=== PATIENT | male | born 1960 | race African-American/Black ===

== ENCOUNTER 2017-06-19 08:21 | Outpatient (CLI) | payer BC ==
[2017-06-19 08:47] VITALS: BMI 34.7
[2017-06-19 10:16] LABS: Hemoglobin 14.1 g/dL (14.0-18.0); Mean Corpuscular HGB CONC 32.8 g/dL (32.0-36.0); Mean Corpuscular Hemoglobin 31.2 pg (27.0-31.0); Mean Corpuscular Volume 95.2 fl (80.0-94.0); Mean Platelet Volume 9.2 fL (7.4-10.4); Platelet Count 136 thou/uL (130-400); RBC Distribution Width 12.9 % (11.5-14.5); Red Blood Cell (RBC) Count 4.52 mill/uL (4.70-6.10); White Blood Cell (WBC) Count 6.2 thou/uL (4.8-10.8)
[2017-06-19 10:23] LABS: INR-International Normal Ratio 1.1; PTT 28.3 SEC (22.9-36.1); Prothrombin Time 14.5 SEC (12.0-14.7)
[2017-06-19 10:44] LABS: ALT (SGPT) 30 U/L (8-55); AST (SGOT) 31 U/L (5-34); Albumin 3.8 g/dL (3.5-5.0); Alkaline Phosphatase 65 U/L (40-150); Anion Gap 11 mmol/L (10-20); BUN (Urea Nitrogen) 20 mg/dL (8.4-25.7); Bilirubin, Total 0.7 mg/dL (0.2-1.2); Calc. Creatinine Clearance 87 mL/min (70-130); Calcium 8.7 mg/dL (7.8-10.44); Carbon Dioxide 24 mmol/L (22-29); Cardiac Risk 2.5 (Less than 4.5); Chloride 108 mmol/L (98-107); Cholesterol 150 mg/dl (< 200 Desired); Estimated GFR-MDRD 53; Globulin 2.8 g/dL (2.4-3.5); Glucose 82 mg/dL (70-105); HDL Cholesterol 61 mg/dL (>60 Neg Risk); LDL Cholesterol, Calculated 80 mg/dL; Potassium 4.9 mmol/L (3.5-5.1); Protein, Total 6.6 g/dL (6.0-8.3); Sodium 138 mmol/L (136-145); Triglycerides 46 mg/dL (Less than 150)
--- NOTE | 2017-06-20 07:21 | EKG ---
Test Reason : Blood Pressure : / mmHG Vent. Rate : 061 BPM Atrial Rate : 061 BPM P-R Int : 146 ms QRS Dur : 080 ms QT Int : 440 ms P-R-T Axes : 049 -35 117 degrees QTc Int : 442 ms Electronic atrial pacemaker Left axis deviation Anterior infarct , age undetermined T wave abnormality, consider lateral ischemia Abnormal ECG When compared with ECG of 21-JAN-2015 20:33, Electronic atrial pacemaker has replaced Sinus rhythm Anterior infarct is now Present T wave inversion now evident in Lateral leads Confirmed by DR. Manolo SUAZO ([id number]) on 06/20/2017 7:21:19 AM Referred By: IVA Confirmed By:DR. Manolo SUAZO
== END 2017-06-19 08:22 | disposition home or self-care (01) ==
LOC: LABBT 08:21
PROVIDERS: ATTEND Internal Medicine Cardiovascular Disease
DX: Z01.818 Encounter for other preprocedural examination (principal); I25.5 Ischemic cardiomyopathy
CPT/HCPCS: 80053; 80061; 85027; 85610; 85730; 93005; 93010

== ENCOUNTER 2017-06-20 06:40 | Day surgery (SDC) | payer BC ==
[2017-06-20 07:30] LABS: Anion Gap 10 mmol/L (10-20); BUN (Urea Nitrogen) 20 mg/dL (8.4-25.7); Calc. Creatinine Clearance 0 mL/min (70-130); Calcium 8.4 mg/dL (7.8-10.44); Carbon Dioxide 23 mmol/L (22-29); Chloride 108 mmol/L (98-107); Estimated GFR-MDRD 52; Glucose 93 mg/dL (70-105); Potassium 4.2 mmol/L (3.5-5.1); Sodium 137 mmol/L (136-145)
[2017-06-20] MEDS ORDERED: Heparin 0 ML ONE (08:57)
[2017-06-20] MEDS ORDERED: Lidocaine 1% (PF) 30 ML VIAL ONE (08:58)
[2017-06-20] MEDS ORDERED: Nitroglycerin 100MG/250ML BOT 250 ML ONE (09:27)
[2017-06-20] MEDS ORDERED: Verapamil 5 MG/2 ML VIAL ONE (09:27)
[2017-06-20] MEDS ORDERED: Heparin 10,000 UNITS/1 ML VIAL ONE (09:42)
[2017-06-20] MEDS ORDERED: Fentanyl 100 MCG/2 ML VIAL ONE (09:42)
[2017-06-20] MEDS ORDERED: Midazolam HCl 2 mg/2 ml Vial ONE (09:43)
[2017-06-20] MEDS ORDERED: Nitroglycerin 0.4 MG TAB (25 Tab Bottle) SL PRN (10:37)
[2017-06-20] MEDS ORDERED: Sodium Chloride 0.9% 1,000 ML IV SCH (10:37)
[2017-06-20] MEDS ORDERED: Acetaminophen/Codeine 30-300mg Tablet PO PRN ×2 (10:37)
[2017-06-20] MEDS ORDERED: TICAGRELOR 90 MG TABLET PO SCH (10:45)
[2017-06-20] MEDS ORDERED: Iopamidol 370 76% 100 ML VIAL ONE (11:25)
== END 2017-06-20 14:46 | disposition home or self-care (01) ==
LOC: CCL 06:40
PROVIDERS: ATTEND Internal Medicine Cardiovascular Disease
PROC: 4A023N7 Measurement of Cardiac Sampling and Pressure, Left Heart, Percutaneous Approach (ICD-10-PCS; principal; 2017-06-20)
DX: I25.5 Ischemic cardiomyopathy (principal); I25.2 Old myocardial infarction; I10 Essential (primary) hypertension; E78.5 Hyperlipidemia, unspecified; K21.9 Gastro-esophageal reflux disease without esophagitis; Z88.0 Allergy status to penicillin
CPT/HCPCS: 80048; 93454; 93798; 99152; C1769; J1644; J2001; J2250; J3010

== ENCOUNTER 2017-10-11 12:15 | Inpatient (IN) | payer BC ==
[~2017-10-11 12:15] MED LIST: Iopamidol 370 76% 100 ML VIAL ONE; Iopamidol 370 76% 50 ML VIAL FS ONE
[2017-10-11 12:47] LABS: #Eosinphils 0.1 thou/uL (0.0-0.7); #Lymphocytes 3.4 thou/uL (1.20-3.40); #Monocytes 0.8 thou/uL (0.11-0.59); #Neutrophils 4.2 thou/uL (1.40-6.50); %Basophils 0.5 % (0.0-1.0); %Eosinophils 1.3 % (0.0-10.0); %Lymphocytes 39.6 % (21.0-51.0); %Monocytes 8.9 % (0.0-10.0); %Neutrophils 49.7 % (42.0-75.0); Hemoglobin 14.3 g/dL (14.0-18.0); Mean Corpuscular HGB CONC 33.7 g/dL (32.0-36.0); Mean Corpuscular Volume 92.1 fL (78.0-98.0); Mean Platelet Volume 8.9 fL (7.4-10.4); Platelet Count 143 thou/uL (130-400); RBC Distribution Width 12.6 % (11.5-14.5); Red Blood Cell (RBC) Count 4.62 mill/uL (4.70-6.10); White Blood Cell (WBC) Count 8.5 thou/uL (4.8-10.8)
[2017-10-11] MEDS ORDERED: Heparin 10,000 UNITS/1 ML VIAL ONE ×2 (12:53→13:30)
[2017-10-11 12:54] LABS: INR-International Normal Ratio 1.2
[2017-10-11] MEDS ORDERED: Aggrastat 12.5 MG/250 ML 250 ML ONE (12:54)
[2017-10-11 12:55] LABS: ALT (SGPT) 36 U/L (8-55); AST (SGOT) 33 U/L (5-34); Alkaline Phosphatase 75 U/L (40-150); Anion Gap 22 mmol/L (10-20); BUN (Urea Nitrogen) 23 mg/dL (8.4-25.7); Bilirubin, Total 0.6 mg/dL (0.2-1.2); CK (CPK) 275 U/L (30-200); Calc. Creatinine Clearance 0 mL/min (70-130); Calcium 9.1 mg/dL (7.8-10.44); Carbon Dioxide 14 mmol/L (22-29); Chloride 107 mmol/L (98-107); Estimated GFR-MDRD 44; Globulin 3.3 g/dL (2.4-3.5); Glucose 147 mg/dL (70-105); PTT 75.9 SEC (22.9-36.1); Potassium 3.2 mmol/L (3.5-5.1); Protein, Total 7.3 g/dL (6.0-8.3); Sodium 140 mmol/L (136-145)
[2017-10-11 13:05] LABS: CKMB 3.8 ng/mL (0-6.6); Troponin I Less than 0.010 ng/mL (< 0.028)
[2017-10-11] MEDS ORDERED: Heparin 1000 UNIT/NS 500ML(OR) 500 ML ONE (13:12)
[2017-10-11] MEDS ORDERED: Heparin 1000 UNIT/NS 500ML(OR) 1,000 ML ONE (13:13)
[2017-10-11] MEDS ORDERED: Lidocaine 1% (PF) 30 ML VIAL ONE (13:13)
[2017-10-11] MEDS ORDERED: Morphine 4 MG/ML VIAL SLOW IVP PRN (14:32)
[2017-10-11] MEDS ORDERED: Sodium Chloride 0.9% 1,000 ML IV SCH (14:32)
[2017-10-11] MEDS ORDERED: Nitroglycerin 0.4 MG TAB (25 Tab Bottle) SL PRN (14:32)
--- NOTE | 2017-10-11 16:06 | CCL ---
CARDIAC CATHETERIZATION REPORT: PROCEDURE: Coronary arteriography, thrombectomy, proximal left anterior descending (LAD) stent, placement of drug-eluting stent in the proximal left anterior descending (LAD). INDICATION: Anterolateral STEMI. DESCRIPTION OF PROCEDURE: The patient was brought from the emergency room after he arrived via ground ambulance from [place]. He had been given 4000 of heparin in [place] and he was given another 4000 when he arrived in the senior cytogenetics laboratory director. The right groin was prepped and draped and a 6 Eritrean sheath was placed into the right femoral artery and after lidocaine was placed for local anesthesia. A 6-Eritrean left 4 guide catheter was inserted. The proximal LAD was found to be totally occluded. There was a very high right angle takeoff of the LAD requiring some wire manipulation, but eventually the LAD was cannulated. The wire selectively went into the stented diagonal rather than the LAD and the decision was made to leave the wire there. A Pronto catheter was then used and a large amount of thrombotic material was removed with denominational of flow and improvement in his symptoms. The second Floppy Choice wire was then inserted into the apical LAD. Additional views were obtained and it was felt that the proximal LAD was somewhat narrowed and the decision was made to place a stent proximal to the previous one. A Synergy 3.5 x 20 mm stent was then positioned and deployed. The diagonal wire was then removed. Contrast injection showed excellent result and the balloon and wire were removed. The left 4 guide catheter was removed and a 6-Eritrean John right 4 was used for right coronary arteriography. The sheath was sutured in place. During the procedure, ACTs were monitored to obtain an ACT greater than 300. Also, Aggrastat was used. He was given Brilinta 180mg since he had not taken his dose this morning. RESULTS: CORONARY ARTERIOGRAPHY: 1. Left main was normal. 2. The LAD was totally occluded. Once this was opened, the diagonal stent was also patent; however, there was an approximately 2 mm area between the takeoff of the first diagonal and where the stent was located with narrowing in that area. The decision was made not to deal with this at this time. 3. The circumflex had a stent in the first obtuse marginal. There was a 60% lesion in the left posterior descending. 4. The right coronary artery was a somewhat small, but normal. INTERVENTION RESULTS: The proximal LAD was totally occluded at the beginning the procedure and at the end of procedure the stents were patent and there was PRABHJOT 3 flow. IMPRESSION: 1. Two-vessel coronary disease (left anterior descending and circumflex). 2. Successful thrombectomy and drug-eluting stent placement in the proximal left anterior descending. POS: LEVON GREEN
[2017-10-11 16:47] VITALS: BMI 32.2
[2017-10-11] MEDS ORDERED: Potassium Chloride 20 MEQ TAB PO SCH (18:45)
[2017-10-11 19:38] LABS: CKMB 142.4 ng/mL (0-6.6); Troponin I 54.204 ng/mL (< 0.028)
[2017-10-11] MEDS: TICAGRELOR 90 MG TABLET PO SCH (19:52)
[2017-10-11] MEDS: Sacubitril 24.5 MG/Valsartan 25.5 MG TABLET PO SCH (19:52)
[2017-10-11] MEDS: Atorvastatin Calcium 40 MG TAB PO SCH (19:52)
[2017-10-11] MEDS: Famotidine 20 MG TAB PO SCH (19:52)
[2017-10-11] MEDS: Aggrastat 12.5 MG/250 ML 250 ML IVPB SCH (19:56)
--- NOTE | 2017-10-11 20:35 | HP ---
DATE OF ADMISSION: 10/11/2017 HISTORY OF PRESENT ILLNESS: Isaias Gonzalez is a 57-year-old black male who initially presented to [facility] in 07/2009. He had an inferolateral myocardial infarction and underwent emergent catheterization by Dr. Jha, which revealed totally occluded large first obtuse marginal. He underwent placement of Promus 3.5 x 28 mm stent. He then apparently did well until he presented back here in 03/2014. He had negative cardiac enzymes after presenting with chest pain. Then in early 2016, he had an anterior STEMI. He was transferred to [facility] to Dr. Barriga, placed a stent in his LAD as well as diagonal, both drug-eluting stents. He had VT arrest and was placed on amiodarone and was sent home on a LifeVest. He continued to have poor left ventricular function and ultimately had placement of a dual chamber ICD by Dr. Parks. After his ICD was placed, he underwent repeat catheterization by Dr. Triana in June of this year and it was found that all stents were patent. He was doing well until this morning when he was cutting some limbs out in his yard in the heat. Also, he had not taken his Brilinta this morning. He then had acute onset of substernal chest pressure associated with shortness of breath and diaphoresis. He went to the emergency room in [place] and was found to have 3-[address] segment elevation V2 through V4. Another EKG on arrival here at [facility] showed more ST elevation in the lateral leads. He was sent by ground ambulance. I was contacted after he had already been accepted by the emergency room physician. PAST MEDICAL HISTORY: Hypertension, hypercholesterolemia. No history of diabetes. MEDICATIONS: At home include aspirin 81 mg daily, Brilinta 90 b.i.d., amiodarone daily, Repatha 140 mg q.2 weeks, Entresto 24/ b.i.d., atorvastatin 40 daily, metoprolol 50 mg daily. ALLERGIES: AMOXICILLIN. SOCIAL HISTORY: He does not smoke. He occasionally drinks. FAMILY HISTORY: Negative for coronary artery disease. REVIEW OF SYSTEMS: Twelve-point review of systems is otherwise unremarkable. PHYSICAL EXAMINATION: VITAL SIGNS: BP 108/80, pulse of 92. HEENT: PERRL. NECK: Supple. CHEST: Clear. CARDIAC: S1, S2 normal without any S3, S4 or murmurs. ABDOMEN: Normal bowel sounds, without tenderness or organomegaly. EXTREMITIES: Revealed no clubbing, cyanosis or edema. NEUROLOGIC: Grossly intact. SKIN: Warm. His face is diaphoretic. LABORATORY DATA: EKG findings as noted above. Laboratories pending at the time he was seen in the emergency room. IMPRESSION: 1. Anterolateral myocardial infarction, probably due to acute stent thrombosis of the LAD and/or diagonal stents. The patient did not take his Brilinta this morning and was out working in the heat. 2. History of anterior myocardial infarction in early 2016 with placement of LAD and diagonal stents at [facility]. 3. Inferolateral myocardial infarction in 07/2009 with placement of stent in a first obtuse marginal. 4. History of ICD placement. 5. Hypercholesterolemia. 6. Hypertension. 7. Ischemic cardiomyopathy. PLAN: The situation was discussed with the patient and his . It was recommended that he undergo emergent catheterization. Risk of , myocardial infarction, dye reaction, vascular injury, CVA, transfusion, limb loss, renal loss, emergent CABG, restenosis, etc., were discussed and he agrees to proceed. PETER
[2017-10-12 01:15] LABS: CKMB 122.5 ng/mL (0-6.6); Critical Call CKMBM RESULT DECREASING; Critical Call Chem Troponin I RESULT DECREASING; Troponin I 44.487 ng/mL (< 0.028)
[2017-10-12 05:23] LABS: #Monocytes 0.5 thou/uL (0.11-0.59); #Neutrophils 7.4 thou/uL (1.40-6.50); %Eosinophils 0.2 % (0.0-10.0); %Lymphocytes 11.7 % (21.0-51.0); %Monocytes 5.3 % (0.0-10.0); %Neutrophils 82.8 % (42.0-75.0); Hemoglobin 14.4 g/dL (14.0-18.0); Mean Corpuscular HGB CONC 33.8 g/dL (32.0-36.0); Mean Corpuscular Hemoglobin 31.4 pg (27.0-31.0); Mean Corpuscular Volume 92.9 fL (78.0-98.0); Mean Platelet Volume 8.8 fL (7.4-10.4); Platelet Count 138 thou/uL (130-400); RBC Distribution Width 12.7 % (11.5-14.5); Red Blood Cell (RBC) Count 4.58 mill/uL (4.70-6.10); White Blood Cell (WBC) Count 8.9 thou/uL (4.8-10.8)
[2017-10-12 05:30] LABS: ALT (SGPT) 48 U/L (8-55); AST (SGOT) 148 U/L (5-34); Albumin 3.6 g/dL (3.5-5.0); Alkaline Phosphatase 65 U/L (40-150); Anion Gap 15 mmol/L (10-20); BUN (Urea Nitrogen) 18 mg/dL (8.4-25.7); Bilirubin, Total 0.6 mg/dL (0.2-1.2); Calc. Creatinine Clearance 90 mL/min (70-130); Calcium 8.7 mg/dL (7.8-10.44); Carbon Dioxide 17 mmol/L (22-29); Chloride 107 mmol/L (98-107); Cholesterol 121 mg/dl (< 200 Desired); Estimated GFR-MDRD 60; Globulin 3.2 g/dL (2.4-3.5); Glucose 140 mg/dL (70-105); HDL Cholesterol 60 mg/dL (>60 Neg Risk); LDL Cholesterol, Calculated 52 mg/dL; Potassium 4.7 mmol/L (3.5-5.1); Protein, Total 6.8 g/dL (6.0-8.3); Sodium 134 mmol/L (136-145); Triglycerides 45 mg/dL (Less than 150)
[2017-10-12] MEDS: Aggrastat 12.5 MG/250 ML 250 ML IVPB SCH (06:53)
[2017-10-12 07:22] LABS: CKMB 126.5 ng/mL (0-6.6); Troponin I 26.288 ng/mL (< 0.028)
[2017-10-12] MEDS: Amiodarone 200 MG TAB PO SCH (09:39)
[2017-10-12] MEDS: Famotidine 20 MG TAB PO SCH ×2 (09:40→20:43)
[2017-10-12] MEDS: TICAGRELOR 90 MG TABLET PO SCH ×2 (09:40→20:44)
[2017-10-12] MEDS: Sacubitril 24.5 MG/Valsartan 25.5 MG TABLET PO SCH ×2 (09:40→20:43)
[2017-10-12] MEDS: Atorvastatin Calcium 40 MG TAB PO SCH (20:43)
[2017-10-13 05:40] LABS: Anion Gap 14 mmol/L (10-20); BUN (Urea Nitrogen) 13 mg/dL (8.4-25.7); Calc. Creatinine Clearance 98 mL/min (70-130); Calcium 8.6 mg/dL (7.8-10.44); Carbon Dioxide 19 mmol/L (22-29); Chloride 107 mmol/L (98-107); Estimated GFR-MDRD 66; Glucose 103 mg/dL (70-105); Potassium 4.5 mmol/L (3.5-5.1); Sodium 135 mmol/L (136-145)
[2017-10-13] MEDS ORDERED: Iopamidol 370 76% 50 ML VIAL FS ONE (08:43)
[2017-10-13] MEDS ORDERED: Iopamidol 370 76% 100 ML VIAL ONE (08:43)
[2017-10-13] MEDS: Amiodarone 200 MG TAB PO SCH (08:46)
[2017-10-13] MEDS: TICAGRELOR 90 MG TABLET PO SCH ×2 (08:47→21:39)
[2017-10-13] MEDS: Sacubitril 24.5 MG/Valsartan 25.5 MG TABLET PO SCH ×2 (08:47→21:39)
[2017-10-13] MEDS: Famotidine 20 MG TAB PO SCH ×2 (08:47→21:39)
--- NOTE | 2017-10-13 17:06 | PDOC.CTH ---
Cardiology Progress Note - Subjective He is doing well. He denies any chest pain, tightness, pressure, SOB. He has walked with CR and did well. - Objective Vital Signs Temp Pulse Pulse Pulse Resp BP BP 10/13/17 09:56 86 62 137/102 H 120/87 10/13/17 07:22 98.6 F 78 14 10/13/17 07:00 98.4 F Pulse Ox Pulse Ox Pulse Ox 10/13/17 09:56 95 94 L 10/13/17 07:22 100 10/13/17 07:00 Weight 251 lb 5.231 oz 10/12/17 10/13/17 10/14/17 06:59 06:59 06:59 Intake Total 1317 1470 720 Output Total 2300 4025 1750 Balance -983 -6979 -1030 - Physical Examination General/Neuro: alert & oriented x3, NAD Neck: no JVD present Lungs: CTA, unlabored respirations Heart: RRR Abdomen: NT/ND Extremities: other: (no edema) - Telemetry Telemetry Rhythm: NSR - Labs Result Diagrams: 10/12/17 04:31 10/13/17 04:56 Troponin/CKMB CK-MB (CK-2) 126.5 ng/mL (0-6.6) H* 10/12/17 04:31 Troponin I 26.288 ng/mL (< 0.028) H* 10/12/17 04:31 - Assessment/Plan 1. Acute anterior MT 2. S/P PCI to LAD FELIPE. 3. Severe ischemic CM 4. Hyperlipidemia 5. S/P VT arrest in the past. PLAN: - Continue current meds. - Brilinta for life - Aspirin for life - Continue other meds, repatha, statin, Entresto.
[2017-10-13] MEDS: Atorvastatin Calcium 40 MG TAB PO SCH (21:39)
[2017-10-14 08:17] VITALS: TEMP 97.8
[2017-10-14] MEDS: TICAGRELOR 90 MG TABLET PO SCH (08:45)
[2017-10-14] MEDS: Sacubitril 24.5 MG/Valsartan 25.5 MG TABLET PO SCH (08:45)
[2017-10-14] MEDS: Famotidine 20 MG TAB PO SCH (08:46)
[2017-10-14] MEDS: Amiodarone 200 MG TAB PO SCH (08:46)
--- NOTE | 2017-10-14 12:53 | DIS ---
DATE OF ADMISSION: 10/11/2017 DATE OF DISCHARGE: 10/14/2017 DISCHARGING PHYSICIAN: Dr. Corbin Triana. PRIMARY DIAGNOSIS: Anterior ST elevation myocardial infarction. DISCHARGE DIAGNOSES: 1. Ischemic cardiomyopathy, EF at 15% to 20%. 2. Presence of an AICD. PROCEDURES PERFORMED: 1. Left heart catheterization. 2. Percutaneous coronary intervention to the LAD with drug-eluting stent. 3. Echocardiogram. SUMMARY: Mr. Gonzalez is a pleasant 57-year-old -[place]angl[place] gentleman, who came to the hospital for chest pain down in [place]. He was transferred over for an acute LA. He was taken to the lab by Dr Mansoor James was credit control manager for me and he found an occluded LAD, which was successfully stented with a keshawn g-coated stent proximally. This was probably in-stent thrombosis. He is about a year and a half out of the last stent on the LAD. He had missed a dose of Brilinta that morning and this may or may hav e not caused this issue. He did well postoperatively. His AICD was interrogated and showed no evide nce of AICD shocks or any nonsustained VT or sustained VT. He was discharged home in stable conditio n. Follow up in the office in 1 month. He will be referred to cardiac rehabilitation, but he feels he is much more active at home that he ever been at cardiac rehabilitation, so we will just try to co ntinue do this at home. I advised him that it may be prudent to do it in cardiac rehabilitation. Ho wever, he may try to do this at home and I think as long as he feels okay that should be fine. Counseled on compliance. We will follow up with him in 1 month. Over 30 minutes were spent bedside counseling for discharge summary.
[2017-10-14 15:53] VITALS: BP 142/107
== END 2017-10-14 16:58 | disposition home or self-care (01) | DRG 247 ==
LOC: ERS 12:15 → SDC 13:02 → CCU 13:06 → 2SE 10-13 20:30
PROVIDERS: ADMIT Internal Medicine Cardiovascular Disease; ATTEND Internal Medicine Cardiovascular Disease
PROC: 027034Z Dilation of Coronary Artery, One Artery with Drug-eluting Intraluminal Device, Percutaneous Approach (ICD-10-PCS; principal; 2017-10-11)
PROC: 4A023N7 Measurement of Cardiac Sampling and Pressure, Left Heart, Percutaneous Approach (ICD-10-PCS; 2017-10-11)
PROC: B2111ZZ Fluoroscopy of Multiple Coronary Arteries using Low Osmolar Contrast (ICD-10-PCS; 2017-10-11)
DX: I21.09 ST elevation (STEMI) myocardial infarction involving other coronary artery of anterior wall (principal); I25.5 Ischemic cardiomyopathy; Z95.810 Presence of automatic (implantable) cardiac defibrillator; E78.5 Hyperlipidemia, unspecified; I10 Essential (primary) hypertension; E78.00 Pure hypercholesterolemia, unspecified; I25.2 Old myocardial infarction
CPT/HCPCS: 36415; 36416; 80048; 80053; 80061; 82553; 84484; 85025; 85610; 85730; 86850; 86900; 86901; 92941; 93005; 93010; 93306; 93454; 93798; 94760; C1757; C1769; C1874; C1887; C9606; J1644; J2001; J2270; J3246

== ENCOUNTER 2017-12-10 21:43 | Observation (INO) | payer BC ==
[2017-12-10 22:19] LABS: #Eosinphils 0.1 thou/uL (0.0-0.7); #Lymphocytes 1.5 thou/uL (1.20-3.40); #Monocytes 0.3 thou/uL (0.11-0.59); #Neutrophils 2.9 thou/uL (1.40-6.50); %Eosinophils 1.9 % (0.0-10.0); %Lymphocytes 31.3 % (21.0-51.0); %Monocytes 6.7 % (0.0-10.0); %Neutrophils 59.1 % (42.0-75.0); Hemoglobin 14.9 g/dL (14.0-18.0); Mean Corpuscular HGB CONC 32.2 g/dL (32.0-36.0); Mean Corpuscular Hemoglobin 30.5 pg (27.0-31.0); Mean Corpuscular Volume 94.7 fL (78.0-98.0); Mean Platelet Volume 9.4 fL (7.4-10.4); Platelet Count 136 thou/uL (130-400); Red Blood Cell (RBC) Count 4.91 mill/uL (4.70-6.10); White Blood Cell (WBC) Count 4.9 thou/uL (4.8-10.8)
[2017-12-10 22:43] LABS: ALT (SGPT) 33 U/L (8-55); AST (SGOT) 34 U/L (5-34); Albumin 3.9 g/dL (3.5-5.0); Alkaline Phosphatase 68 U/L (40-150); Anion Gap 11 mmol/L (10-20); BUN (Urea Nitrogen) 24 mg/dL (8.4-25.7); Bilirubin, Total 0.4 mg/dL (0.2-1.2); CK (CPK) 188 U/L (30-200); Calc. Creatinine Clearance 0 mL/min (70-130); Calcium 8.8 mg/dL (7.8-10.44); Carbon Dioxide 25 mmol/L (22-29); Chloride 106 mmol/L (98-107); Estimated GFR-MDRD 51; Globulin 3.5 g/dL (2.4-3.5); Glucose 88 mg/dL (70-105); Lipase 24 U/L (8-78); Potassium 4.9 mmol/L (3.5-5.1); Protein, Total 7.4 g/dL (6.0-8.3); Sodium 137 mmol/L (136-145)
--- NOTE | 2017-12-10 22:43 | RAD ---
PORTABLE AP CHEST X-RAY 12/10/17 HISTORY: Chest pain. COMPARISON: 01/21/15. FINDINGS: A dual lead left subclavian AICD device is now noted in place. The youth nutritional monitor leads overlie the chest. The cardiac silhouette and pulmonary vasculature are within normal limits. There is stable mil d elevation of the left hemidiaphragm. The lungs are otherwise clear. There has been no interval whitley ge from the prior exam. IMPRESSION: No acute cardiopulmonary process. POS: EDWARD
[2017-12-10 22:45] LABS: CKMB 4.1 ng/mL (0-6.6); Troponin I Less than 0.010 ng/mL (< 0.028)
[2017-12-11] MEDS ORDERED: Acetaminophen 325 MG TAB PO PRN (00:11)
[2017-12-11 00:26] VITALS: BMI 36.8
[2017-12-11] MEDS ORDERED: Benzocaine (Dental) 20% 10 gm Tube TOP SCH (00:45)
[2017-12-11] MEDS ORDERED: Aspirin 325 MG TAB PO SCH (09:00)
[2017-12-11] MEDS ORDERED: Rivaroxaban 10 MG TAB PO SCH (14:00)
[2017-12-11 16:20] VITALS: BP 151/87; TEMP 98.1
[2017-12-11] MEDS ORDERED: Atorvastatin Calcium 40 MG TAB PO SCH (21:00)
[2017-12-11] MEDS ORDERED: Sacubitril 24.5 MG/Valsartan 25.5 MG TABLET PO SCH (21:00)
[2017-12-11] MEDS ORDERED: TICAGRELOR 90 MG TABLET PO SCH (21:00)
[2017-12-11] MEDS ORDERED: Non-Formulary Item 1 EACH (Sacubitril/Valsartan [Entresto 24 Mg-26 Mg Tablet] 1 TAB) PO SCH (21:00)
--- NOTE | 2017-12-11 22:08 | CON ---
DATE OF CONSULTATION: 12/11/2017 CARDIOLOGY CONSULTATION REASON FOR CONSULTATION: Chest pain. HISTORY OF PRESENT ILLNESS: Mr. Gonzalez is a very pleasant 57-year-old -[place]guill[place] gentleman who c omes to the hospital for chest pain. He was at home prepared himself a meal and had a little chest t ightness, left side of the chest. He became worried. He felt some palpitations, we decided to come in. He has a significant history of ischemic cardiomyopathy. He has had at least four MIs, three of which he presented with VT arrest. He has had about three interventions to the LAD last one being a bout 2 months ago. At that time, Dr. James was clinical services professional and he placed a drug-eluting stent in his LAD. Currently, he is pain free. He thinks his pain is mostly related to just being anxious about t he whole situation. He has been very compliant with all his medications as he usually is. PAST MEDICAL HISTORY: 1. Ischemic cardiomyopathy, last EF on last admission about 20%. 2. Hypertension. 3. Hyperlipidemia. 4. Coronary artery disease. PAST SURGICAL HISTORY: Multiple heart catheterizations. OUTPATIENT MEDICATIONS: Include, 1. Aspirin 81 a day. 2. Brilinta 90 mg b.i.d. 3. Amiodarone daily. 4. Repatha 140 mg every 2 weeks. 5. Entresto 24/ b.i.d. 6. Atorvastatin 40 mg a day. 7. Metoprolol 50 mg a day. ALLERGIES: AMOXICILLIN and PENICILLIN. SOCIAL HISTORY: No alcohol, tobacco or drugs. Occasional social drinker. FAMILY HISTORY: Noncontributory. No early coronary artery disease. REVIEW OF SYSTEMS: Twelve point review of symptoms was done and it is all negative as stated in hist ory of present illness. PHYSICAL EXAMINATION: VITAL SIGNS: Temperature 98.1, pulse 61, respiration rate 24, satting 98% on room air, blood pressur e 151/87, but it was 120/80 in the morning. GENERAL: Awake, alert, oriented x3, in no distress. HEENT: Normocephalic, atraumatic. NECK: Supple. LUNGS: Clear. CARDIOVASCULAR: S1, S2, no S3, S4, no murmurs or rubs. ABDOMEN: Soft. Positive bowel sounds. EXTREMITIES: No edema. SKIN: Warm and dry. LABORATORY DATA: Laboratory work was reviewed. Troponins have been negative x3. BNP was 247, which is baseline, creatinine is 1.0 little bit higher than normal. Albumin of 3.9. IMAGING DATA: EKG was reviewed. Chest x-ray was reviewed. ASSESSMENT AND PLAN: 1. Chest pain: He is ruled out with negative enzymes, negative EKG with no additional anatomy looks like so it is unlikely to be a coronary syndrome. He is doing much better, feeling better. We will plan on starting Xarelto 2.5 mg twice a day. This is a new dose recently FDA approved to treat brittany ent at high risk for recurrence of cardiac events. He has had at least 3 or 4 episodes of anterior S T elevation myocardial infarction. I have given a prescription for this. We will decide in the futu re if there is any other modification in these therapies. At this time, we will continue this for no w. 2. Continue other medications. 3. He may be discharged home. Thank you for letting us to participate in the care of your patient. We will sign off. Please call with any questions.
--- NOTE | 2017-12-12 02:48 | SS ---
PRIMARY CARE PHYSICIAN: Dr. Elton Quiroga. CHIEF COMPLAINT: Chest pain. HISTORY OF PRESENT ILLNESS: A 57-year-old male patient was transferred from [facility] in [facility] for chest pain, rule out. The patient has an extensive cardiac history with KS x4. He has 5 sten ts. He is on Brilinta and aspirin. The patient reports he was in his normal state of health when he was sitting at his desk getting ready to do some stretches when his chest began to hurt and his hear t rate dramatically increased. Patient says the symptoms felt similar to his previous heart attacks and it is also stating he was anxious, so he sought medical attention. The patient reports his pain is mostly gone at the moment. The patient had an anterior ST elevation KS in September, was taken to [facility] label drier and had a drug-eluting stent placed in the LAD. The patient has an AICD, which was interr ogated on that visit. The patient sees Dr. Triana on an outpatient basis. The patient in the ER rep orts that he did not have any further chest pain. On evaluation on the OBs Unit, the patient stated that chest pain has not returned. Cardiology will be consulted for further management. PAST MEDICAL HISTORY: KS x4, 3 stents were placed in 2015. Another stent was placed in September. Taisha ward also has hyperlipidemia. ALLERGIES: Include AMOXICILLIN. MEDICATIONS: Include Cordarone 200 mg p.o. daily, aspirin 325 mg p.o. daily, Lipitor 40 mg p.o. at b edtime, Repatha 420 mg subcu monthly, Toprol-XL 50 mg p.o. daily, Protonix 40 mg p.o. daily, Entresto one tab p.o. b.i.d., Flomax 0.4 mg daily, Brilinta 90 mg p.o. b.i.d. and today we added Xarelto 2.5 mg p.o. b.i.d. HOSPITAL COURSE: The patient was transferred from [facility] for chest pain, was see n in the ER and admitted to the OBs unit. The patient remains chest pain free. Dr. Oliveira was consul loan, saw the patient and said that he could go home and follow up with him on an outpatient and added the Xarelto 2.5 mg p.o. b.i.d. The patient was agreeable and sent home. REVIEW OF SYSTEMS: The patient was seen by me this morning. A 12-point review of systems was conduc loan and otherwise negative, unless mentioned in above HPI. PHYSICAL EXAMINATION: CONSTITUTIONAL: The patient is alert and oriented to person, place and time. VITAL SIGNS: Blood pressure 128/95, pulse is 60, respirations are 16, temperature 98.4, pulse ox 99 at room air. HEENT: Head is atraumatic and normocephalic. EYES: Pupils equally round and reactive to light. Conjunctivae normal. Extraocular muscles are int act. ENT: Nose exam is normal. Mucous membranes are moist. NECK: Normal range of motion. Trachea is midline. No JVD. RESPIRATORY: No respiratory distress. Breath sounds are clear. CARDIOVASCULAR: Heart sounds are normal S1, S2. ABDOMEN: Male, no tenderness. Bowel sounds are present. BACK: No tenderness. No CVA tenderness. EXTREMITIES: Upper extremity pulses strength equal bilaterally. Lower extremities pulses are intact . No tenderness. No edema noted. NEUROLOGIC: The patient is oriented to person, place and time. Speech is normal. SKIN: Warm, dry, and normal in color. PERTINENT LABORATORY AND X-RAYS: A BNP 247. Lipase is 24. CK was 188. Sodium 137, potassium is 4. 9, chloride 106, carbon dioxide 25, anion gap 11, BUN 24, creatinine 1.7, GFR is 51, glucose is 88. AST 34, ALT 33, CK-MB , troponin 0.010. White blood cell count is 4.9, hemoglobin 14.9, hematoc rit 46.4, platelets are 136. EKG atrial paced rhythm, prolonged AV, T waves, possible left atrial enlargement, normal axis, nonspe cific changes, no STEMI criteria. Chest x-ray no acute findings. ASSESSMENT AND PLAN: 1. Chest pain. Patient will receive a cardiology consultation. 2. Hyperlipidemia. The patient will be restarted on home medication. 3. Acute coronary syndrome. The patient will remain on Brilinta and aspirin. 4. The patient will be started on Xarelto 2.5 mg p.o. b.i.d. as directed by Cardiology. All other home medications will be continued, which include Atorvastatin 40 mg once a day, Protonix 4 0 mg daily, metoprolol 50 mg once a day, amiodarone 200 mg once a day, Brilinta 90 mg 2 times a day. DISCHARGE DISPOSITION: Stable. Patient will be discharged home. Patient will need to follow up wit h Dr. Quiroga within the next week and will follow up with Dr. Triana in the next 2-3 weeks.
[2017-12-12] MEDS ORDERED: Aspirin 325 MG TAB PO SCH (09:00)
[2017-12-12] MEDS ORDERED: Amiodarone 200 MG TAB PO SCH (09:00)
[2017-12-12] MEDS ORDERED: Tamsulosin HCl 0.4 MG CAP PO SCH (09:00)
--- NOTE | 2017-12-13 11:22 | EKG ---
Test Reason : Blood Pressure : / mmHG Vent. Rate : 060 BPM Atrial Rate : 060 BPM P-R Int : 210 ms QRS Dur : 078 ms QT Int : 454 ms P-R-T Axes : 062 000 152 degrees QTc Int : 454 ms Atrial-paced rhythm with prolonged AV conduction Low voltage QRS T wave abnormality, consider anterolateral ischemia Abnormal ECG Confirmed by JULIO MARIE, KASIA ([id number]), publication editor NITISH BRADSHAW ([id number]) on 12/13/2017 11:22:31 AM Referred By: Confirmed By:KASIA KIM MD
== END 2017-12-11 16:56 | disposition home or self-care (01) ==
LOC: ERS 21:43 → 2SW 23:06
PROVIDERS: ADMIT Internal Medicine; ATTEND Internal Medicine
DX: R07.9 Chest pain, unspecified (principal); E78.5 Hyperlipidemia, unspecified; I10 Essential (primary) hypertension; I25.2 Old myocardial infarction; Z88.0 Allergy status to penicillin; Z79.82 Long term (current) use of aspirin; Z79.899 Other long term (current) drug therapy
CPT/HCPCS: 36415; 71045; 80053; 82553; 83690; 83880; 84484; 85025; 90471; 90686; 90732; 93005; G0008; G0009; G0378

== ENCOUNTER 2022-05-25 16:57 | Observation (INO) | payer BC ==
[2022-05-25 17:47] LABS: #Basophils 0.1 thou/uL (0.0-0.2); #Eosinphils 0.1 thou/uL (0.0-0.7); #Lymphocytes 1.2 thou/uL (1.20-3.40); #Monocytes 0.4 thou/uL (0.11-0.59); #Neutrophils 3.3 thou/uL (1.40-6.50); %Eosinophils 2.9 % (0.0-10.0); %Monocytes 7.2 % (0.0-10.0); %Neutrophils 64.9 % (42.0-75.0); Hemoglobin 14.3 g/dL (14.0-18.0); Mean Corpuscular HGB CONC 33.9 g/dL (32.0-36.0); Mean Corpuscular Hemoglobin 30.6 pg (27.0-31.0); Mean Corpuscular Volume 90.3 fl (78.0-98.0); Mean Platelet Volume 9.6 fL (7.4-10.4); Platelet Count 137 10x3/uL (130-400); Red Blood Cell (RBC) Count 4.66 mill/uL (4.70-6.10)
[2022-05-25 18:08] LABS: ALT (SGPT) 48 U/L (8-55); AST (SGOT) 39 U/L (5-34); Albumin 3.9 g/dL (3.4-4.8); Alkaline Phosphatase 62 U/L (40-110); Anion Gap 16 mmol/L (10-20); BUN (Urea Nitrogen) 15 mg/dL (8.4-25.7); Bilirubin, Total 0.4 mg/dL (0.2-1.2); Calc. Creatinine Clearance 0 mL/min (70-130); Carbon Dioxide 17 mmol/L (23-31); Chloride 111 mmol/L (98-107); Estimated GFR 50; Globulin 2.9 g/dL (2.4-3.5); Glucose 78 mg/dL (80-115); Potassium 4.4 mmol/L (3.5-5.1); Protein, Total 6.8 g/dL (5.8-8.1); Sodium 140 mmol/L (136-145)
[2022-05-25 18:18] LABS: Bacteria/HPF None Seen HPF (None Seen); Bilirubin Negative (Negative); Blood, Urine 3+ (Negative); Clarity Clear (Clear); Glucose, Urine (Dipstick) Normal (Negative); Ketone, Urine Negative (Negative); Leukocyte 25 Leu/uL (Negative); Nitrite Negative (Negative); Protein, Urine (Dipstick) 10 mg/dL (Neg-Trace); RBC/HPF Greater than 50 HPF (0-3); Specific Gravity, Urine 1.019 (1.002-1.036); Squamous Epithelial 0-3 HPF (0-3); Urobilinogen Normal mg/dL (Less than 2); pH, Urine 5.5 (5.0-9.0)
[2022-05-25] MEDS ORDERED: Aspirin Chewable 81 MG TAB ONE (19:33)
[2022-05-25] MEDS ORDERED: Ondansetron ODT 4 MG TAB SL PRN (21:45)
[2022-05-25] MEDS ORDERED: Acetaminophen 325 MG TAB PO PRN (21:45)
[2022-05-25] MEDS ORDERED: Ondansetron PF 4 MG/2 ML Vial IVP PRN (21:45)
[2022-05-25 21:55] LABS: Troponin I Less than 0.010 ng/mL (< 0.028)
[2022-05-25 22:54] VITALS: BMI 33.3
[2022-05-26 01:25] LABS: Troponin I Less than 0.010 ng/mL (< 0.028)
[2022-05-26] MEDS ORDERED: Sacubitril 24MG/Valsartan 26 MG TAB PO SCH (09:00)
[2022-05-26] MEDS ORDERED: Rivaroxaban 2.5 MG TAB PO SCH (09:00)
[2022-05-26] MEDS ORDERED: Tamsulosin HCl 0.4 MG CAP PO SCH (09:00)
[2022-05-26 12:29] VITALS: BP 129/87; TEMP 97.6
[2022-05-26] MEDS ORDERED: Atorvastatin Calcium 40 MG TAB PO SCH (21:00)
== END 2022-05-26 13:15 | disposition home or self-care (01) ==
LOC: ERS 16:57 → 2SW 20:10
PROVIDERS: ADMIT Student in an Organized Health Care Education/Training Program; ATTEND Student in an Organized Health Care Education/Training Program
DX: E16.2 Hypoglycemia, unspecified (principal); R00.2 Palpitations; I11.0 Hypertensive heart disease with heart failure; I50.40 Unspecified combined systolic (congestive) and diastolic (congestive) heart failure; I25.10 Atherosclerotic heart disease of native coronary artery without angina pectoris; N40.0 Benign prostatic hyperplasia without lower urinary tract symptoms; J98.59 Other diseases of mediastinum, not elsewhere classified; I25.2 Old myocardial infarction; E78.00 Pure hypercholesterolemia, unspecified; R07.89 Other chest pain; Z79.01 Long term (current) use of anticoagulants; Z79.02 Long term (current) use of antithrombotics/antiplatelets; Z79.620 Long term (current) use of immunosuppressive biologic; Z79.82 Long term (current) use of aspirin; Z79.899 Other long term (current) drug therapy; Z88.0 Allergy status to penicillin; Z95.5 Presence of coronary angioplasty implant and graft; Z95.810 Presence of automatic (implantable) cardiac defibrillator
CPT/HCPCS: 36415; 36416; 71045; 71275; 80053; 81003; 81015; 83690; 83880; 84484; 85025; 86140; 93005; G0378

== ENCOUNTER 2024-02-02 08:25 | Outpatient (CLI) | payer BC ==
[2024-02-02] MEDS ORDERED: Iopamidol 370 76% 100 ML VIAL ONE (12:45)
== END 2024-02-02 08:26 | disposition home or self-care (01) ==
LOC: CT 08:25
PROVIDERS: ATTEND Internal Medicine Cardiovascular Disease
DX: D49.89 Neoplasm of unspecified behavior of other specified sites (principal); I25.10 Atherosclerotic heart disease of native coronary artery without angina pectoris
CPT/HCPCS: 36415; 71260; 82565

== ENCOUNTER 2024-03-30 10:33 | Outpatient (CLI) | payer BC | END 2024-03-30 10:34 | disposition home or self-care (01) | LOC: LABBT 10:33 | PROVIDERS: ATTEND Student in an Organized Health Care Education/Training Program | DX: Z01.818 Encounter for other preprocedural examination (principal); I48.91 Unspecified atrial fibrillation; J98.59 Other diseases of mediastinum, not elsewhere classified | CPT/HCPCS: 71046; 93005; 93010 ==